=== PATIENT | male | born 1965 | race Asian ===

== ENCOUNTER → 2016-10-12 | Outpatient (CLI) | payer BC ==
[~2016-10-12] MED LIST: CANA100T PO; GLUCOPHAGE1000 MG PO
== END ==
LOC: COL.RAD 09:42
DX: K74.60 Unspecified cirrhosis of liver (principal); K75.81 Nonalcoholic steatohepatitis (NASH)

== ENCOUNTER → 2017-04-24 | Outpatient (CLI) | payer BC | LOC: COL.RAD 04-20 10:30 | DX: K75.81 Nonalcoholic steatohepatitis (NASH) (principal); K74.60 Unspecified cirrhosis of liver; R74.8 Abnormal levels of other serum enzymes ==

== ENCOUNTER 2024-02-12 16:37 | Inpatient (IN) | payer BC ==
[2024-02-12] VITALS (77 sets, daily range): BP systolic 81–108; BP diastolic 56–70; PULSE 102–111; TEMP 97.5–99.1; O2SAT 98–100
[~2024-02-12] VITALS: Ht 162.6 cm; Wt 60.5 kg
[2024-02-12] MEDS ORDERED: Pantoprazole 80 MG in NS 100 ML IV ONE (16:45)
[2024-02-12] MEDS ORDERED: Pantoprazole 40 MG in NS 100 ML IV ONE (16:45)
[2024-02-12 17:16] LABS: HEMATOCRIT 21.3 % (42.0-52.0); MEAN CELL VOLUME 100 fl (80.0-100.0); MEAN CORPUSCULAR HEMOGLOBIN 33 pg (27-31); MEAN CORPUSCULAR HGB CONC 33 g/dl (33.0-37.0); PLATELET COUNT 178 K/mm3 (130-400); RED BLOOD COUNT 2.14 M/mm3 (4.20-5.60); REDCELL DISTRIBUTION WIDTH-CV 12.9 % (11.5-14.5)
[2024-02-12 17:19] LABS: ALBUMIN 2.9 g/dL (3.5-5.0); BILIRUBIN,TOTAL 0.9 mg/dL (0.2-1.2); CALCIUM 9.5 mg/dL (8.4-10.2); MAGNESIUM 2.3 mg/dL (1.6-2.6); POTASSIUM 4.5 mEq/L (3.5-4.5)
[2024-02-12 17:48] LABS: BAND 2 % (0-10); LYMPHOCYTE 15 % (20.0-51.0); NEUTROPHILS 79 % (42.0-75.2); PLATELET ESTIMATE NORMAL (NORMAL)
[2024-02-12] MEDS ORDERED: NS 1,000 ML IV ONE (18:00)
[2024-02-12] MEDS ORDERED: Ondansetron 4 MG/2 ML VIAL IV ONE (18:15)
[2024-02-12] MEDS ORDERED: Pantoprazole 40 MG in NS 100 ML IV SCH (18:30)
[2024-02-12] MEDS ORDERED: NS 1,000 ML IV SCH (18:30)
[2024-02-12] MEDS ORDERED: Dextrose 50% Water 25 GM/50 ML SYRINGE IV PRN (18:45)
[2024-02-12] MEDS ORDERED: Dextrose (Glucose) 15 GM (4 x 3.75 GM) Chewable TABLET PACK PO PRN (18:45)
[2024-02-12] MEDS ORDERED: Glucagon 1 MG VIAL IM PRN (18:45)
[2024-02-12 20:48] LABS: INR 1.4 (0.8-3.0); PROTHROMBIN TIME 14.6 SECONDS (9.7-12.8)
[2024-02-12] MEDS ORDERED: SYNJARDY 12.5-1 EACH PO (20:58)
[2024-02-12] MEDS ORDERED: ACTOS 15MG TAB15 MG PO (20:59)
[2024-02-13] VITALS (558 sets, daily range): BP systolic 85–116; BP diastolic 60–72; PULSE 80–111; TEMP 97.6–99.2; O2SAT 96–100
[2024-02-13] MEDS ORDERED: Insulin Lispro (HumaLOG) SQ SCH
[2024-02-13 00:17] LABS: HEMATOCRIT 27.7 % (42.0-52.0); HEMOGLOBIN 9.8 g/dl (13.5-18.0)
[2024-02-13 02:37] LABS: HEMATOCRIT 27.5 % (42.0-52.0); HEMOGLOBIN 9.5 g/dl (13.5-18.0)
--- NOTE | 2024-02-13 05:23 | NUR ---
PT WAS ADMITTED FOR ACTIVE GI BLEEDING. PER REPORT, PT HAD BLOODY EMESIS IN ED. NO BLOODY EMESIS OR STOOL OVER NIGHT. PT RECEIVED 2 UNITS PRBC'S. IVF AT 125ML/HR. HR 90'S TO LOW 100'S OVERNIGHT. PT NPO FOR POSSIBLE SCOPE TODAY. GI CONSULT. RESPIRATIONS EVEN AND UNLABORED. NO SIGN OF DISTRESS AT THIS TIME. CONTINUE PLAN OF CARE.
[2024-02-13 06:36] LABS: HEMATOCRIT 25.8 % (42.0-52.0); HEMOGLOBIN 8.9 g/dl (13.5-18.0)
[2024-02-13 07:56] LABS: CALCIUM 8.3 mg/dL (8.4-10.2); CREATININE, serum 0.79 mg/dL (0.72-1.25); POTASSIUM 4.5 mEq/L (3.5-4.5)
--- NOTE | 2024-02-13 08:35 | NUR ---
parks worker met with pt to discuss discharge planning. He reports to live with his , Mihai [phone] and children in [place]. He sees Dr. Jose Ervin for PCP needs out of [place]. He obtains medications from [facility] with no difficulties. He reports to be independent with ADLS and uses no DME. He does not have a DPOA-HC and is agreeable to his being NOK. No further needs. Discharge Plan: home
[2024-02-13] MEDS ORDERED: Ondansetron 4 MG/2 ML VIAL IV PRN (08:45)
[2024-02-13] MEDS ORDERED: Pantoprazole 40 MG in NS 10 ML IV SCH (09:00)
--- NOTE | 2024-02-13 09:10 | NUR ---
Pt resting comfortably in bed. VSS. IV infusing without complications. Pt not complaining of any pain or discomfort. GI physician at bedside communicating with patient about an upper endoscopy procedure. Pt agreed to procedure that is scheduled to occur this afternoon. Morning medications administered. Pt to side of bed to use urinal. Pt does not have any questions, concerns, or complaints at this time.
[2024-02-13] MEDS ORDERED: LR 1,000 ML IV SCH (10:00)
[2024-02-13 11:22] LABS: HEMATOCRIT 24.7 % (42.0-52.0); HEMOGLOBIN 8.5 g/dl (13.5-18.0)
[2024-02-13] MEDS ORDERED: Lidocaine PF 2% (20 MG/ML) 5 ML VIAL ONE (12:08)
[2024-02-13] MEDS ORDERED: cefTRIAXone 1 G in Water For Injection,Sterile 10 ML IV ONE (12:30)
[2024-02-13] MEDS ORDERED: Octreotide 500 MCG in NS 500 ML IV ONE (12:30)
[2024-02-13] MEDS ORDERED: Octreotide 100 MCG/ML 1 ML VIAL IV ONE (12:30)
--- NOTE | 2024-02-13 13:27 | NUR ---
Data: Spiritual Care visit attempted during [employer] rounds. Patient was sleeping. Assessment: None. Patient was sleeping. Plan of Care: Chaplains will remain available as needed/requested while Patient is admitted to this hospital.
[2024-02-13 13:55] LABS: CHOLESTEROL RISK RATIO 4.6
[2024-02-13 14:06] LABS: IRON,SERUM 239 ug/dL (50-175)
[2024-02-13] MEDS ORDERED: Iohexol 300 - 100 ML VIAL IV ONE (15:47)
[2024-02-13] MEDS ORDERED: NS 100 ML IV SCH (15:48)
[2024-02-13 19:51] LABS: HEMATOCRIT 20.9 % (42.0-52.0); HEMOGLOBIN 7.3 g/dl (13.5-18.0)
--- NOTE | 2024-02-13 20:27 | NUR ---
BEDSIDE SHIFT REPORT RECEIVED FROM FUEL MANAGEMENT HANDLER. PATIENT WAS ABLE TO AMBULATE FROM WHEELCHAIR TO BED WITH NO ASSISTIVE DEVICES. HE IS STABLE ON ROOM AIR AND IS ALERT AND ORIENTED X 4. DENIES ANY PAIN IN HIS ABDOMEN, ALSO DENIES ANY NAUSEA. INSTRUCTED BATH DESIGN SALES CONSULTANT LIGHT USE AND ENSURED CALL LIGHT IS WITHIN REACH. BED IS LOCKED AND IN LOW POSITION.
[2024-02-13 23:07] LABS: HEPATITIS B CORE AB,TOTAL Negative (Negative); HEPATITIS B SURFACE ANTIBODY <2.0 (()); HEPATITIS B SURFACE ANTIGEN Negative (Negative); HEPATITIS C VIRUS ANTIBODY Negative (Negative)
[2024-02-14] VITALS (12 sets, daily range): BP systolic 88–100; BP diastolic 55–72; PULSE 68–93; TEMP 97.8–98.5
[2024-02-14 04:17] LABS: URINE APPEARANCE CLEAR (CLEAR/HAZY); URINE BLOOD NEGATIVE (NEGATIVE); URINE COLOR YELLOW (YELLOW); URINE GLUCOSE 3+ (NEGATIVE); URINE KETONE TRACE (NEGATIVE); URINE NITRATE NEGATIVE (NEGATIVE); URINE PROTEIN(semi-quant) NEGATIVE (NEGATIVE)
[2024-02-14 05:09] LABS: COLLECTION METHOD CLEAN CATCH
[2024-02-14 06:31] LABS: MEAN CORPUSCULAR HGB CONC 34 g/dl (33.0-37.0); MEAN PLATELET VOLUME 9.9 fl (7.4-10.4); PLATELET COUNT 89 K/mm3 (130-400); RED BLOOD COUNT 2.14 M/mm3 (4.20-5.60); REDCELL DISTRIBUTION WIDTH-CV 15.4 % (11.5-14.5)
[2024-02-14 06:45] LABS: HEMATOCRIT 19.8 % (42.0-52.0); HEMOGLOBIN 6.7 g/dl (13.5-18.0); MEAN CELL VOLUME 93 fl (80.0-100.0); MEAN CORPUSCULAR HEMOGLOBIN 31 pg (27-31)
[2024-02-14 06:48] LABS: ALBUMIN 2.4 g/dL (3.5-5.0); CALCIUM 7.2 mg/dL (8.4-10.2); CREATININE, serum 0.67 mg/dL (0.72-1.25); MAGNESIUM 2.1 mg/dL (1.6-2.6); PHOSPHOROUS 2.4 mg/dL (2.3-4.7); POTASSIUM 3.5 mEq/L (3.5-4.5)
--- NOTE | 2024-02-14 07:29 | NUR ---
critical hemaglobin value of 6.[address] Sary Golden.
[2024-02-14 08:01] LABS: BAND 7 % (0-10); EOSINOPHIL 1 % (0-4); LYMPHOCYTE 9 % (20.0-51.0); NEUTROPHILS 77 % (42.0-75.2); NUCLEATED RED BLOOD CELL 2 (0-6); PLATELET ESTIMATE DECREASED (NORMAL)
[2024-02-14] MEDS ORDERED: Octreotide 500 MCG in NS 500 ML IV SCH (08:45)
[2024-02-14] MEDS ORDERED: cefTRIAXone 1 G in Water For Injection,Sterile 10 ML IV SCH (08:45)
--- NOTE | 2024-02-14 09:11 | NUR ---
PATIENT ALERT AND ORIENTED X4. VSS. PATIENT HERE FOR GI BLEED. HGB DECREASED TO 6.7, ONE UNIT OF PRBC ORDERED. IV TO LEFT HAND WITH NS RUNNING AT 125ML/HOUR. IV TO RIGHT AC INT AND FLUSHES WELL. PATIENT ON RA. PATIENT DENIES ANY PAIN THIS AM. PATIENT DENIES ANY BM OR VOMITING OVERNIGHT OR THIS AM. PATIENT RESTING IN BED. CALL LIGHT IN REACH.
[2024-02-14 15:12] LABS: HEMATOCRIT 22.5 % (42.0-52.0); HEMOGLOBIN 7.6 g/dl (13.5-18.0)
--- NOTE | 2024-02-14 21:11 | NUR ---
PATIENT IS RESTING IN BED, REPORTS SOME DISCOMFORT IN HER UPPER ABDOMEN AND IRRITATION TO HIS LEFT AC FROM TAPE APPLIED FOLLOWING A BLOOD DRAW. DENIES ANY CHEST PAIN OR SHORTNESS OF BREATH. STATES HE HAS NOT HAD A BOWEL MOVEMENT OR ANY EPISODES OF VOMITING TODAY. CALL LIGHT IS WITHIN REACH. BED IS LOCKED AND IN LOW POSITION.
[2024-02-15 03:52] VITALS: BP 105/69; PULSE 95; TEMP 98.1
[2024-02-15 07:11] LABS: BASO % 0.3 % (0.0-2.0); EOS # 0.1 K/mm3 (0.0-0.7); EOS % 0.9 % (0.0-4.0); GRAN % 77.7 % (42.2-75.2); LYMPH # 0.7 K/mm3 (1.2-3.4); LYMPH % 10.5 % (20.0-51.0); MEAN CELL VOLUME 92 fl (80.0-100.0); MEAN CORPUSCULAR HGB CONC 33 g/dl (33.0-37.0); MEAN PLATELET VOLUME 10.1 fl (7.4-10.4); MONO # 0.6 K/mm3 (0.1-0.6); MONO % 9.5 % (1.7-9.3); PLATELET COUNT 71 K/mm3 (130-400); RED BLOOD COUNT 2.54 M/mm3 (4.20-5.60); REDCELL DISTRIBUTION WIDTH-CV 15.9 % (11.5-14.5)
[2024-02-15 07:12] LABS: HEMATOCRIT 23.3 % (42.0-52.0); HEMOGLOBIN 7.7 g/dl (13.5-18.0); MEAN CORPUSCULAR HEMOGLOBIN 30 pg (27-31)
[2024-02-15 07:15] VITALS: BP 106/69; PULSE 94; TEMP 98.7
[2024-02-15 07:29] LABS: ALBUMIN 2.5 g/dL (3.5-5.0); CALCIUM 7.4 mg/dL (8.4-10.2); CREATININE, serum 0.62 mg/dL (0.72-1.25); POTASSIUM 3.5 mEq/L (3.5-4.5)
[2024-02-15 07:45] LABS: PHOSPHOROUS 2.3 mg/dL (2.3-4.7)
--- NOTE | 2024-02-15 08:51 | NUR ---
Patient resting in bed, A&O X4, VSS. States his abdomen is distended, he feels it is because of what he ate yesterday. Assessment completed, meds given. Getting NS and Octeotride gtt per orders. Abdoment soft, but distended. No further needs at this time. Call light within reach.
[2024-02-15 11:21] VITALS: BP 104/67; PULSE 95; TEMP 98.2
[2024-02-15 12:18] LABS: HEMATOCRIT 24.1 % (42.0-52.0); HEMOGLOBIN 8.1 g/dl (13.5-18.0)
[2024-02-15] MEDS ORDERED: NS 100 ML IV SCH (14:12)
[2024-02-15] MEDS ORDERED: Iohexol 300 - 100 ML VIAL IV ONE (14:12)
[2024-02-15 15:23] VITALS: BP 107/67; PULSE 81; TEMP 98.1
[2024-02-15 19:13] VITALS: BP 124/7; PULSE 94; TEMP 98.6
--- NOTE | 2024-02-15 19:48 | NUR ---
report received from khadijah levy. pt resting in bed watching tv. pt denies pain. call light in reach. all needs met at this time.
--- NOTE | 2024-02-15 21:34 | NUR ---
shift assessment complete, see documentation. pt tolerated hs meds well. pt noted to have firm distended stomach with audible bowel sounds and is passing gas. pt reports his last bowel movement was a yellow/light brown color. pt continues to deny pain. fall precautions in place. call light in reach. all needs met at this time.
--- NOTE | 2024-02-15 23:14 | NUR ---
Patient left facility to go to [facility] room 4226 at approximatly [id number] via [facility]. This nurse called and gave report to HARMONY Lundy at [phone] ([phone]).
[2024-02-20 10:32] LABS: HEPATITIS AB (HAV) IGG INDEX SEE REPORT (()); IMMUNO G SUBCLASS 1 SEE REPORT (()); IMMUNO G SUBCLASS 2 SEE REPORT (()); IMMUNO G SUBCLASS 3 SEE REPORT (()); IMMUNO G SUBCLASS 4 SEE REPORT (())
[2024-02-23 05:37] LABS: ANTISMOOTH MUSCLE ANTIBODY <1:20 (<1:20)
== END 2024-02-15 23:05 | disposition short-term general hospital (02) | DRG 368 ==
LOC: COL.ER 16:37 → ICU 18:32 → MEDICAL 18:32
PROVIDERS: Emergency Medicine; Internal Medicine Gastroenterology; Nurse Practitioner Family; ADMIT Internal Medicine
PROC: 30233N1 Transfusion of Nonautologous Red Blood Cells into Peripheral Vein, Percutaneous Approach (ICD-10-PCS; 2024-02-12)
PROC: 0DB68ZX Excision of Stomach, Via Natural or Artificial Opening Endoscopic, Diagnostic (ICD-10-PCS; 2024-02-13)
PROC: 06L38CZ Occlusion of Esophageal Vein with Extraluminal Device, Via Natural or Artificial Opening Endoscopic (ICD-10-PCS; principal; 2024-02-13 12:30)
DX: I85.01 Esophageal varices with bleeding (principal); K55.059 Acute (reversible) ischemia of intestine, part and extent unspecified; R57.1 Hypovolemic shock; D62 Acute posthemorrhagic anemia; E87.20 Acidosis, unspecified; R65.10 Systemic inflammatory response syndrome (SIRS) of non-infectious origin without acute organ dysfunction; K76.6 Portal hypertension; R18.8 Other ascites; I95.9 Hypotension, unspecified; K92.0 Hematemesis; K29.60 Other gastritis without bleeding; E78.5 Hyperlipidemia, unspecified; I45.10 Unspecified right bundle-branch block; K74.60 Unspecified cirrhosis of liver; K59.00 Constipation, unspecified; E11.65 Type 2 diabetes mellitus with hyperglycemia; Z79.899 Other long term (current) drug therapy; Z87.891 Personal history of nicotine dependence
CPT/HCPCS: J0696; J1815; J2354-JA; J2405; J2470; J2704; J7030; J7040; J7120; P9016; Q9967